=== PATIENT | female | born 1955 | race Native Hawaiian/Other Pacific Islander ===

== ENCOUNTER 2016-04-09 10:23 | Emergency (ER) | payer OTHER ==
[~2016-04-09] VITALS: Ht 162.6 cm; Wt 104.3 kg
[~2016-04-09 10:23] MED LIST: ADIPEX PO; ALPR0.5T24 PO; AZOR1 TAB PO; CELEBREX200 MG PO; CYCL10TA35 PO; DEXL60CA4 PO; GABA100C2 PO; GABA300C2 PO; HYDR25TA60 PO; LEVO0.0723 PO; LORTAB PO; MELO-13 PO; NEXIUM40 M1 PO; TIROSINT50 MCG PO
[2016-04-09 10:35] VITALS: TEMP 98.2
[2016-04-09 13:12] VITALS: BP 156/80
== END 2016-04-09 13:15 | disposition home or self-care (01) ==
LOC: ED 10:23
DX: S39.012A Strain of muscle, fascia and tendon of lower back, initial encounter (principal); V53.6XXA Passenger in pick-up truck or van injured in collision with car, pick-up truck or van in traffic accident, initial encounter; Y92.488 Other paved roadways as the place of occurrence of the external cause
CPT/HCPCS: 99282

== ENCOUNTER 2016-04-13 16:29 | Outpatient (CLI) | payer OTHER ==
[2016-04-13 16:47] LABS: PLATELET COUNT 318 K/uL (152-353)
[2016-04-13 16:59] LABS: POTASSIUM 2.5 mmol/L (3.6-5.2); SODIUM 129 mmol/L (136-145)
[2016-04-14] MEDS ORDERED: DICL50TA PO (17:12)
[2016-04-14] MEDS ORDERED: DICL1GEL2 TOP (17:13)
[2016-04-14] MEDS ORDERED: PROAIR HFA IN (17:14)
[2016-04-14] MEDS ORDERED: TRAM50TA PO (17:15)
[2016-04-14] MEDS ORDERED: GABA300C2 PO (17:16)
== END 2016-04-13 19:19 | disposition home or self-care (01) ==
LOC: RAD 16:29 → LABW 16:29
PROVIDERS: Family Medicine
DX: J20.9 Acute bronchitis, unspecified (principal); R53.83 Other fatigue; E86.0 Dehydration
CPT/HCPCS: 36415; 80053; 81000; 85027; 87804

== ENCOUNTER 2016-04-14 14:32 | Observation (INO) | payer OTHER ==
[~2016-04-14] VITALS: Ht 162.6 cm; Wt 100.9 kg
[2016-04-14 15:49] VITALS: BP 179/66; TEMP 98.7; Ht 162.6 cm; Wt 100.9 kg
[2016-04-14] MEDS ORDERED: DICL50TA PO (17:12)
[2016-04-14] MEDS ORDERED: DICL1GEL2 TOP (17:13)
[2016-04-14] MEDS ORDERED: PROAIR HFA IN (17:14)
[2016-04-14] MEDS ORDERED: TRAM50TA PO (17:15)
[2016-04-14] MEDS ORDERED: GABA300C2 PO (17:16)
[2016-04-14 17:40] LABS: PLATELET COUNT 352 K/uL (152-353)
[2016-04-14 17:52] LABS: SODIUM 129 mmol/L (136-145)
[2016-04-14 20:00] VITALS: BP 153/64; TEMP 98.4
[2016-04-15 00:21] VITALS: BP 153/77; TEMP 98.3
[2016-04-15 04:00] VITALS: BP 154/70; TEMP 98
[2016-04-15 07:30] LABS: PLATELET COUNT 317 K/uL (152-353)
[2016-04-15 08:00] VITALS: BP 140/64; TEMP 97.9
[2016-04-15 08:04] LABS: POTASSIUM 2.6 mmol/L (3.6-5.2); SODIUM 135 mmol/L (136-145)
[2016-04-15 12:00] VITALS: BP 145/77; TEMP 98.4
[2016-04-15] MEDS ORDERED: TRAM50TA PO (13:51)
[2016-04-15] MEDS ORDERED: GABA300C2 PO (13:51)
[2016-04-15] MEDS ORDERED: DICLOFEN POT50 MG PO (13:52)
[2016-04-15] MEDS ORDERED: TIROSINT50 MCG PO (13:53)
[2016-04-15] MEDS ORDERED: DEXILANT60 M1 PO (13:53)
[2016-04-15] MEDS ORDERED: HYDR25TA60 PO (13:54)
[2016-04-15] MEDS ORDERED: ZANTAC 75 PO (13:54)
[2016-04-15] MEDS ORDERED: ALPR0.5T24 PO (13:55)
[2016-04-15 16:02] VITALS: BP 129/71; TEMP 98.3
[2016-04-15 20:00] VITALS: BP 143/79; TEMP 98.9
[2016-04-16] VITALS: BP 136/75; TEMP 98.4
[2016-04-16 04:00] VITALS: BP 132/81; TEMP 98.4
[2016-04-16 05:38] LABS: POTASSIUM 3.7 mmol/L (3.6-5.2); SODIUM 141 mmol/L (136-145)
[2016-04-16 05:51] LABS: PLATELET COUNT 288 K/uL (152-353)
[2016-04-16 07:58] VITALS: BP 123/60; TEMP 98.5
== END 2016-04-16 09:30 | disposition home or self-care (01) ==
LOC: MED/SURG 14:32
PROVIDERS: ADMIT Family Medicine
DX: J18.8 Other pneumonia, unspecified organism (principal); E87.6 Hypokalemia
CPT/HCPCS: 36415; 80053; 81000; 83735; 85027; 87040; 87804; 93005; 94640; 94664; 94760; 96360; 96361; 96367; 96374; 99220; G0378; G0379; J1200; J3480

== ENCOUNTER 2016-04-19 10:32 | Emergency (ER) | payer OTHER ==
[~2016-04-19] VITALS: Ht 162.6 cm; Wt 104.3 kg
[~2016-04-19 10:32] MED LIST changes: +DEXILANT60 M1 PO; +DICL1GEL2 TOP; +DICL50TA PO; +DICLOFEN POT50 MG PO; +PROAIR HFA IN; +TRAM50TA PO; +ZANTAC 75 PO
[2016-04-19 11:09] LABS: PLATELET COUNT 346 K/uL (152-353)
[2016-04-19 11:19] LABS: POTASSIUM 3.7 mmol/L (3.6-5.2); SODIUM 133 mmol/L (136-145)
[2016-04-19 12:11] VITALS: BP 133/83; TEMP 98
== END 2016-04-19 12:27 | disposition home or self-care (01) ==
LOC: ED 10:32
DX: I10 Essential (primary) hypertension (principal); R00.2 Palpitations
CPT/HCPCS: 36415; 80053; 81000; 85027; 93005; 99283

== ENCOUNTER 2016-04-19 14:42 | Outpatient (CLI) | payer OTHER ==
[2016-04-19 15:06] LABS: POTASSIUM 4.6 mmol/L (3.6-5.2); SODIUM 139 mmol/L (136-145)
== END 2016-04-19 19:21 | disposition home or self-care (01) ==
LOC: LAB 14:42
PROVIDERS: Family Medicine
DX: R53.83 Other fatigue (principal)
CPT/HCPCS: 80053

== ENCOUNTER 2016-04-27 13:45 | Outpatient (CLI) | payer OTHER | END 2016-04-27 19:58 | disposition home or self-care (01) | LOC: MRI 13:45 | DX: M47.896 Other spondylosis, lumbar region (principal) ==

== ENCOUNTER 2016-05-10 08:00 | Outpatient (CLI) | payer OTHER | END 2016-05-10 19:11 | disposition home or self-care (01) | LOC: RESP 08:00 | DX: I10 Essential (primary) hypertension (principal) | CPT/HCPCS: 93306 ==

== ENCOUNTER 2016-06-21 11:18 | Outpatient (CLI) | payer OTHER ==
[2016-06-21 11:35] LABS: PLATELET COUNT 319 K/uL (152-353)
[2016-06-21 12:02] LABS: POTASSIUM 3.5 mmol/L (3.6-5.2); SODIUM 137 mmol/L (136-145)
== END 2016-06-21 19:06 | disposition home or self-care (01) ==
LOC: LABW 11:18
PROVIDERS: Family Medicine
DX: R42 Dizziness and giddiness (principal); R19.7 Diarrhea, unspecified
CPT/HCPCS: 36415; 80053; 81000; 83735; 84439; 84443; 85027

== ENCOUNTER 2016-07-14 14:46 | Outpatient (CLI) | payer OTHER ==
[2016-07-14 15:56] LABS: POTASSIUM 3.8 mmol/L (3.6-5.2); SODIUM 141 mmol/L (136-145)
== END 2016-07-14 16:00 | disposition home or self-care (01) ==
LOC: LABW 14:46
PROVIDERS: Nurse Practitioner Family
DX: M79.1 Myalgia (principal)
CPT/HCPCS: 36415; 80053

== ENCOUNTER 2016-08-18 07:36 | Outpatient (CLI) | payer OTHER | END 2016-08-18 08:40 | disposition home or self-care (01) | LOC: RAD 07:36 | DX: R51 Headache (principal) ==

== ENCOUNTER 2017-04-18 16:09 | Outpatient (CLI) | payer BC ==
[2017-04-18 16:48] LABS: PLATELET COUNT 313 K/uL (152-353)
[2017-04-18 17:21] LABS: POTASSIUM 3.1 mmol/L (3.6-5.2)
== END 2017-04-18 22:14 | disposition home or self-care (01) ==
LOC: LABW 16:09
PROVIDERS: Internal Medicine
DX: I10 Essential (primary) hypertension (principal); E03.8 Other specified hypothyroidism; R00.2 Palpitations; J32.8 Other chronic sinusitis
CPT/HCPCS: 36415; 80053; 80061; 81000; 84439; 84443; 85027; 93225

== ENCOUNTER 2018-01-14 10:01 | Outpatient (CLI) | payer BC | END 2018-01-14 19:45 | disposition home or self-care (01) | LOC: MAMMO 10:01 | DX: Z12.31 Encounter for screening mammogram for malignant neoplasm of breast (principal) ==

== ENCOUNTER 2018-04-13 09:41 | Outpatient (CLI) | payer OTHER ==
[2018-04-13 10:11] LABS: PLATELET COUNT 323 K/uL (152-353)
[2018-04-13 10:19] LABS: POTASSIUM 3.8 mmol/L (3.6-5.2)
== END 2018-04-13 19:31 | disposition home or self-care (01) ==
LOC: LABW 09:41
PROVIDERS: Physician Assistant
DX: E03.9 Hypothyroidism, unspecified (principal); I10 Essential (primary) hypertension
CPT/HCPCS: 36415; 80053; 80061; 82306; 84439; 84443; 85027

== ENCOUNTER 2018-04-17 09:18 | Outpatient (CLI) | payer OTHER | END 2018-04-17 20:03 | disposition home or self-care (01) | LOC: LABW 09:18 | DX: D64.9 Anemia, unspecified (principal) | CPT/HCPCS: 36415; 82272; 82607; 82728; 82747; 83540; 83550; 85044 ==

== ENCOUNTER 2018-05-15 11:57 | Day surgery (SDC) | payer OTHER | END 2018-05-15 16:40 | disposition home or self-care (01) | LOC: OR 11:57 | PROC: 0DB68ZZ Excision of Stomach, Via Natural or Artificial Opening Endoscopic (ICD-10-PCS; principal; 2018-05-15) | PROC: 0DB88ZZ Excision of Small Intestine, Via Natural or Artificial Opening Endoscopic (ICD-10-PCS; 2018-05-15) | DX: K21.0 Gastro-esophageal reflux disease with esophagitis (principal); K29.50 Unspecified chronic gastritis without bleeding; R10.13 Epigastric pain; R11.0 Nausea; D50.9 Iron deficiency anemia, unspecified; K44.9 Diaphragmatic hernia without obstruction or gangrene | CPT/HCPCS: J2704; J7120 ==

== ENCOUNTER 2018-05-17 09:44 | Outpatient (CLI) | payer OTHER ==
[2018-05-17 10:11] LABS: PLATELET COUNT 297 K/uL (152-353)
== END 2018-05-17 19:47 | disposition home or self-care (01) ==
LOC: LABW 09:44
PROVIDERS: Internal Medicine
DX: R53.82 Chronic fatigue, unspecified (principal); D64.9 Anemia, unspecified
CPT/HCPCS: 36415; 85027

== ENCOUNTER 2018-05-29 10:42 | Day surgery (SDC) | payer OTHER | END 2018-05-29 13:05 | disposition home or self-care (01) | LOC: OR 10:42 | PROC: 0DBN8ZZ Excision of Sigmoid Colon, Via Natural or Artificial Opening Endoscopic (ICD-10-PCS; principal; 2018-05-29) | PROC: 0DBH8ZZ Excision of Cecum, Via Natural or Artificial Opening Endoscopic (ICD-10-PCS; 2018-05-29) | DX: K63.5 Polyp of colon (principal); D12.5 Benign neoplasm of sigmoid colon; D12.0 Benign neoplasm of cecum; K57.30 Diverticulosis of large intestine without perforation or abscess without bleeding; K64.8 Other hemorrhoids; D50.8 Other iron deficiency anemias; R10.30 Lower abdominal pain, unspecified | CPT/HCPCS: J2001; J2250; J2405; J2704 ==

== ENCOUNTER 2019-08-21 09:40 | Outpatient (CLI) | payer OTHER | END 2019-08-21 21:36 | disposition home or self-care (01) | LOC: LAB 09:40 | DX: Z20.828 Contact with and (suspected) exposure to other viral communicable diseases (principal) | CPT/HCPCS: 87635; G2023; U0002 ==

== ENCOUNTER 2021-11-08 08:33 | Outpatient (CLI) | payer OTHER | END 2021-11-08 19:26 | disposition home or self-care (01) | LOC: MAMMO 08:33 | PROVIDERS: ATTEND Nurse Practitioner | DX: Z13.820 Encounter for screening for osteoporosis (principal); Z12.31 Encounter for screening mammogram for malignant neoplasm of breast; N95.8 Other specified menopausal and perimenopausal disorders ==